=== PATIENT | male | born 1965 | race Caucasian/White ===

== ENCOUNTER 2017-10-30 12:58 | Emergency (ER) | payer OTHER ==
[~2017-10-30] VITALS: Ht 180.3 cm; Wt 86.2 kg
[~2017-10-30 12:58] MED LIST: MOTRIN800 MG PO; NORFLEX100 MG PO
[2017-10-30] MEDS ORDERED: CLINDAMYCIN HC300 MG PO (14:40)
[2017-10-30] MEDS ORDERED: DOXYCYCLINE100 M3 PO (14:40)
== END 2017-10-30 14:36 | disposition home or self-care (01) ==
LOC: ED 12:58
DX: S71.132A Puncture wound without foreign body, left thigh, initial encounter (principal); Z88.0 Allergy status to penicillin; Z88.4 Allergy status to anesthetic agent; Z91.040 Latex allergy status; W54.0XXA Bitten by dog, initial encounter; Y93.89 Activity, other specified; Y92.89 Other specified places as the place of occurrence of the external cause; Y99.8 Other external cause status

== ENCOUNTER → 2019-05-16 | Outpatient (CLI) | payer OTHER ==
[~2019-05-16] MED LIST changes: +CLINDAMYCIN HC300 MG PO; +DOXYCYCLINE100 M3 PO
[2019-05-16 14:47] LABS: BASO % 0.4 % (0.0-1.0); EOS # 0.2 10*3/uL (0.0-0.4); EOS % 2.3 % (1.0-4.0); HEMATOCRIT 47.7 % (42.0-52.0); HEMOGLOBIN 15.9 g/dl (14.0-18.0); LYMPH # 2.3 10*3/uL (1.3-4.4); LYMPH % 33.7 % (27.0-41.0); MEAN CELL VOLUME 92.8 fl (80.0-94.0); MEAN CORPUSCULAR HGB 30.9 pg (27.0-31.0); MEAN CORPUSCULAR HGB CONC 33.3 g/dl (33.0-37.0); MEAN PLATELET VOLUME 10.3 fl (9.6-12.3); MONO # 0.4 10*3/uL (0.1-1.0); MONO % 6.2 % (3.0-9.0); NEUT % 57.1 % (47.0-73.0); PLATELET COUNT AUTOMATED 282 10*3/uL (130-400); RED BLOOD COUNT 5.14 10*6/uL (4.50-5.90); RED CELL DISTRI WIDTH 11.9 % (0-14.5); RETICULOCYTE % 1.62 % (0.50-2.50); WHITE BLOOD COUNT 6.9 10*3/uL (4.8-10.8)
[2019-05-16 14:58] LABS: BILIRUBIN NEGATIVE (NEGATIVE); BLOOD NEGATIVE (NEGATIVE); CLARITY CLEAR (CLEAR); COLOR YELLOW (YELLOW); GLUCOSE NEGATIVE (NEGATIVE); KETONE NEGATIVE (NEGATIVE); LEUKO ESTERASE NEGATIVE (NEGATIVE); NITRITE NEGATIVE (NEGATIVE); PH 6.5 (5.0-9.0); UROBILINOGEN 0.2 E.U./dl (0.2-1.0)
[2019-05-16 15:20] LABS: ALBUMIN 4.5 gm/dl (3.1-4.5); BUN 15 mg/dl (7-24); CHLORIDE 106 mmol/L (98-107); POTASSIUM 3.5 mmol/L (3.5-5.1); SODIUM 139 mmol/L (136-145)
[2019-05-16 15:22] LABS: FERRITIN 287.4 ng/mL (22.0-322.0); VITAMIN D, 25-HYDROXY 21.2 ng/mL (30-100)
[2019-05-16 15:33] LABS: ALKALINE PHOSPHATASE 87 U/L (45-117); CHOLESTEROL 274 mg/dL (<200); CREATININE 1.12 mg/dL (0.70-1.30); GAMMA GLUTAMYL TRANSPEPTIDASE 31 U/L (15-85); HDL CHOLESTEROL 54 mg/dl (40-60); IRON 128 ug/dL (65-175); LDL CHOLESTEROL 193 mg/dL (9-159); SGOT/AST 16 IU/L (3-35); SGPT/ALT 32 U/L (12-78); T3 UPTAKE 31 % (31-39); THYROXINE (T4) TOTAL 7.2 ug/dl (4.5-12.1); TOTAL IRON BINDING CAPACITY 387 ug/dl (250-450); TOTAL PROTEIN 8.5 gm/dL (6.4-8.2); TRIGLYCERIDES 135 mg/dl (<150); URIC ACID 5.7 mg/dL (3.5-7.2); VLDL CHOLESTEROL 27 mg/dL (6-40)
[2019-05-17 05:06] LABS: RHEUMATOID ARTHRITIS FACTOR <10.0 IU/mL (0.0-13.9)
[2019-05-17 12:06] LABS: ANTI-DSDNA ANTIBODIES 096339 <1 IU/mL (0-9)
== END | disposition home or self-care (01) ==
LOC: LAB 14:18
PROVIDERS: Family Medicine
DX: R79.89 Other specified abnormal findings of blood chemistry (principal); R53.83 Other fatigue; E55.9 Vitamin D deficiency, unspecified

== ENCOUNTER → 2023-09-16 | Outpatient (CLI) | payer OTHER ==
[2023-09-16 13:43] LABS: MEAN CELL VOLUME 93.9 fl (80.0-94.0); MEAN CORPUSCULAR HGB 31.7 pg (27.0-31.0); MEAN CORPUSCULAR HGB CONC 33.7 g/dl (33.0-37.0); MEAN PLATELET VOLUME 9.3 fl (9.6-12.3); PLATELET COUNT AUTOMATED 261 10*3/uL (130-400); RED BLOOD COUNT 4.58 10*6/uL (4.50-5.90); RED CELL DISTRI WIDTH 12.1 % (0-14.5); RETICULOCYTE % 1.66 % (0.50-2.50); WHITE BLOOD COUNT 6.9 10*3/uL (4.8-10.8)
[2023-09-16 13:53] LABS: BILIRUBIN Negative (Negative); BLOOD Negative (Negative); CLARITY Cloudy (Clear); COLOR Yellow (Yellow); GLUCOSE Negative (Negative); KETONE Negative (Negative); LEUKO ESTERASE Negative (Negative); NITRITE Negative (Negative); PH 7.5 (4.5-8.0); UROBILINOGEN 0.2 E.U./dl (0.0-1.0)
[2023-09-16 13:59] LABS: BACTERIA 1+
[2023-09-16 14:04] LABS: ATYPICAL LYMPHS 1 % (0-0); BASOPHILS 1 % (0-1); TOTAL CELLS COUNTED 100 #CELLS
[2023-09-16 14:05] LABS: BURR CELLS FEW; PLATELET SUFFICIENCY NORMAL (NORMAL)
[2023-09-16 14:15] LABS: ALKALINE PHOSPHATASE 80 U/L (46-116); BUN 18 mg/dl (9-23); CHLORIDE 104 mmol/L (98-107); CHOLESTEROL 252 mg/dL (<200); GAMMA GLUTAMYL TRANSPEPTIDASE 43 U/L (0-73); LDL CHOLESTEROL 179 mg/dL (9-159); POTASSIUM 4.1 mmol/L (3.4-5.1); SGPT/ALT 21 U/L (5-49); TOTAL PROTEIN 7.2 gm/dL (6.0-8.0); TRIGLYCERIDES 130 mg/dl (<150); URIC ACID 6.9 mg/dL (3.7-9.2)
[2023-09-16 14:25] LABS: VITAMIN D, 25-HYDROXY 26.9 ng/mL (30-100)
[2023-09-17 06:11] LABS: TOTAL PROTEIN, SERUM 6.8 g/dL (6.0-8.5)
[2023-09-19 12:07] LABS: A/G RATIO 1.1 (0.7-1.7); ALBUMIN 3.6 g/dL (2.9-4.4); ALPHA-1-GLOBULIN 0.2 g/dL (0.0-0.4); ALPHA-2-GLOBULIN 0.7 g/dL (0.4-1.0); BETA GLOBULIN 1.2 g/dL (0.7-1.3); GLOBULIN, TOTAL 3.2 g/dL (2.2-3.9)
[2023-09-19 13:06] LABS: ANTI-DSDNA ANTIBODIES <1 IU/mL (0-9)
[2023-09-20 12:08] LABS: ALBUMIN, URINE 25.2 % (.); ALPHA-1-GLOBULIN, URINE 7.2 % (.); ALPHA-2-GLOBULIN, URINE 26.7 % (.); GAMMA GLOBULIN, URINE 15.8 % (.); M-SPIKE, % Not Observed % (Not Observed)
== END | disposition home or self-care (01) ==
LOC: LAB 13:02
PROVIDERS: ATTEND Family Medicine
DX: R79.89 Other specified abnormal findings of blood chemistry (principal); R06.02 Shortness of breath; R53.83 Other fatigue; E78.5 Hyperlipidemia, unspecified; E55.9 Vitamin D deficiency, unspecified

== ENCOUNTER → 2023-12-19 | Outpatient (CLI) | payer OTHER | END | disposition home or self-care (01) | LOC: CARD 14:49 | DX: I51.7 Cardiomegaly (principal); I48.0 Paroxysmal atrial fibrillation ==